=== PATIENT | male | born 1975 | race Caucasian/White ===

== ENCOUNTER 2023-05-02 05:33 | Outpatient (CLI) | payer OTHER ==
[~2023-05-02] VITALS: Ht 172.7 cm; Wt 96.8 kg
[2023-05-04] MEDS ORDERED: PRAV10TA PO (10:50)
[2023-05-04] MEDS ORDERED: LISI10TA25 PO (10:50)
== END 2023-05-04 10:59 | disposition home or self-care (01) ==
LOC: PREOP 05:33
PROVIDERS: ATTEND Internal Medicine
DX: Z01.818 Encounter for other preprocedural examination (principal)

== ENCOUNTER 2023-05-11 07:12 | Day surgery (SDC) | payer BC, OTHER ==
--- NOTE | 2023-04-26 08:16 | HISTORY AND PHYSICAL ---
COLONOSCOPY CONSULTATION HISTORY OF PRESENT ILLNESS: The patient is a 48-year-old white male referred by Dr. Caputo for his first screening colonoscopy. He is deemed to be of average risk, is not aware of any family history for colon cancer or inflammatory bowel disease. He denies any change in bowel habits, bright red blood per rectum, melena or abdominal pain. PAST MEDICAL HISTORY: Significant for hypertension and hyperlipidemia with no known history of coronary artery disease. FAMILY HISTORY: Father is living, history of osteoarthritis of the knees at the age of 75. Mother has a history of coronary artery disease, living at the age of 74. PAST SURGICAL HISTORY: He had jaw surgery 15 years ago and tonsillectomy and adenoidectomy as a child. SOCIAL HISTORY: He is a residential and commercial developer, works for a large [employer] and does a lot of traveling. He has no past smoking history and no history of any significant alcohol consumption. REVIEW OF SYSTEMS: CONSTITUTIONAL: Denies night sweats, chills, fever or change in weight. PULMONARY: Denies cough, wheezing or shortness of breath. CARDIOVASCULAR: Denies chest pain, orthopnea, PND, pedal edema or syncope. GASTROINTESTINAL: As noted in the HPI. PHYSICAL EXAMINATION: GENERAL: Reveals a white male, appeared to be in no acute distress. HEENT: Unremarkable. Sclerae nonicteric. VITAL SIGNS: Weight 213 pounds, blood pressure 130/80. CARDIOVASCULAR: Reveals a regular rate and rhythm without murmur, S3, or S4. ABDOMEN: Soft, supple without mass, organomegaly, or tenderness. EXTREMITIES: No cyanosis, clubbing or edema. ASSESSMENT AND PLAN: The patient is being set up for screening colonoscopy with past medical history of hypertension, well controlled and hyperlipidemia, on statin therapy for primary prevention. Prep instructions were given and questions were answered. I thank you for the referral of this pleasant gentleman. Job ID: [id number] DocumentID: [id number] Dictated Date: 04/18/2023 17:21:08 Insulation Worker Interior Surface Date: 04/18/2023 17:38:00 Dictated By: STEFANIA LONG MD
[2023-05-11] VITALS (7 sets, daily range): BP systolic 88–130; BP diastolic 51–89
[~2023-05-11] VITALS: Ht 172.7 cm; Wt 96.8 kg
[~2023-05-11 07:12] MED LIST: LISI10TA25 PO; PRAV10TA PO
[2023-05-11] MEDS ORDERED: LACTATED RINGERS 1,000 ML 1,000 ML IV STA (07:14)
[2023-05-11] MEDS ORDERED: MIDAZOLAM INJ 2 MG/2 ML VIAL ONE (07:32)
--- NOTE | 2023-05-11 07:49 | Pre-Op Note & Conscious Sedat ---
Pre-Operative Progress Note Date H&P Reviewed: May 11, 2023 Time H&P Reviewed: 07:48 History & Physical: H&P Reviewed, Patient Examed, No changes noted Pre-Op Diagnosis: screening Moderate Sedation PreProcedure ASA Score 2 Airway Lungs Heart ASA score ASA 1: a normal healthy patient ASA 2: a patient with a mild systemic disease (mid diabetes, controlled hypertension, obesity ASA 3: a patient with a severe systemic disease that limits activity (angina, COPD, prior Myocardial infarction) ASA 4: a patient with an incapacitating disease that is a constant threat to life (CHF, renal failure) ASA 5: a moribund patient not expected to survive 24 hrs. (ruptured aneurysm) ASA 6: a declared brain- patient whose organs are being harvested. For emergent operations, add the letter E after the classification Mallampati Classification Grade 2 Sedation Plan Analgesia, Amnesia, Plan communicated to team members, Discussed options with patient/fam, Discussed risks with patient/fam The patient is an appropriate candidate to undergo the planned procedure, sedation, and anesthesia. The patient immediately re-assessed prior to indication. STEFANIA LONG MD May 11, 2023 07:49
--- NOTE | 2023-05-11 08:31 | Progress Note-Post Operative ---
Post-Procedure Note Physician (s)/Rn Admission (s) Physician STEFANIA LONG MD Pre-Procedure Diagnosis Pre-Procedure Diagnosis: screening Post-Procedure Diagnosis Post-operative diagnosis: Prior to undergoing colonoscopy digital rectal evaluation was performed. Anal sphincter tone was normal and the perianal reflexes intact. No abnormalities noted on digital inspection anal canal or distal rectal vault. The prostate was unremarkable digital inspection normal in size. The colonoscope was then inserted into the rectum and under direct visualization advanced to the cecum. The cecum was identified by an indication of the ileocecal valve and cecal strap. Photographic documentation obtained. Careful inspection was made as the colonoscope withdrawn. Quality the prep was good. Findings several grade 1 internal hemorrhoid complexes were noted with no evidence for external hemorrhoids. The rectum sigmoid colon descending colon splenic flexure and transverse colon were unremarkable. A 4 mm sessile adenomatous appearing polyp was noted at the hepatic flexure as well as a 6 mm polyp noted in the mid ascending colon and both were biopsied and ablated with hot forceps with no blood loss. The remainder the ascending colon and cecum were unremarkable. Assessment: 1. Several grade 1 internal hemorrhoid complexes were noted with no evidence for external hemorrhoids. 2. 2 adenomatous polyps were removed today as noted above via hot forceps 4 mm polyp from hepatic flexure and 6 mm from the mid ascending colon. As long as there is no evidence for dysplasia or microscopic malignancy would advocate repeat screening colonoscopy in 5 years. I thank you for the furl this pleasant gentleman. Sincerely, Stefania Long MD. CC: Dr. Mary GARCIA MD. STEFANIA LONG MD May 11, 2023 08:31
== END 2023-05-11 09:25 | disposition home or self-care (01) ==
LOC: ENDO 07:12
PROVIDERS: ATTEND Internal Medicine
DX: Z12.11 Encounter for screening for malignant neoplasm of colon (principal); D12.3 Benign neoplasm of transverse colon; D12.2 Benign neoplasm of ascending colon; K64.0 First degree hemorrhoids; I10 Essential (primary) hypertension; E78.5 Hyperlipidemia, unspecified; Z79.899 Other long term (current) drug therapy